=== PATIENT | male | born 1985 | race Two or more races ===

== ENCOUNTER 2016-06-28 20:35 | Emergency (ER) | payer OTHER ==
[~2016-06-28] VITALS: Ht 180.3 cm; Wt 70.5 kg
[2016-06-28 20:57] VITALS: BP 127/84; PULSE 62; RESP 16; O2SAT 99
--- NOTE | 2016-06-28 21:45 | ED.REPORT ---
HPI-Dental/Mouth Prob Date of Service June 28, 2016 ED Provider: Dr. Raymundo Tobar D.O. A healthy 30 year old male presents to the ED with a left lower molar crown fracture onset at 1900 today, while eating pasta. The patient also reports left- sided gingival pain and swelling. He denies other symptoms. The patient has had similar symptoms in the past. Nursing Notes Stated Complaint: BROKEN CROWN Chief Complaint: Dental Nursing Notes Reviewed: Yes Allergies: Coded Allergies: cortisone (Verified Adverse Reaction, Unknown, Rash, 06/28/16) General Time Seen by MD: 21:44 Chief Complaint Tooth crown fracture Hx Obtained From: Patient Arrived By: Walk-in Onset Occurred: 1 - 4 hours ago Symptom Duration: Since onset Location: : Tooth lower L molar Quality: Painful Severity: Current: Moderate Severity: Maximum: Moderate Pertinent Negative: Relieved by nothing Recent Healthcare: No recent doctor visit Similar Sx Previous: Yes Past Medical History Past Medical History None reported Past Surgical History None reported Smoking History Unknown if Ever Smoker Ambulatory Status Independent Review of Systems Review of Systems Note: + Left lower molar crown fracture, left-sided gingival pain and swelling Constitutional: Denies: Fever Respiratory: Denies: Non-productive cough, Shortness of breath GI: Denies: Diarrhea, Vomiting Complete sys rev & neg: except as marked. Physical Exam Initial Vital Signs Vital Signs (First) Date Time Temp Pulse Resp B/P Pulse Ox O2 Delivery O2 Flow Rate FiO2 06/28/16 20:57 36.8 62 16 127/84 99 Room Air Initial VS: Reviewed Head / Eyes: Atraumatic, Normocephalic Respiratory: No respiratory distress Skin: Warm, Dry, No cyanosis Neurologic: Alert, Oriented, Nonfocal Psychiatric: Mood/affect normal, Behavior normal, Normal thought content ENT: Airway patent, Mucous membranes moist, No trismus Dental / Gums: Positive: Dental caries present, Tooth fracture No Dustin's angina Left buccal cellulitis No periapical abscess Neck: Supple, Full range of motion General/Constitutional: Awake, Alert Re-Eval/Medical Decision Re-Evaluation/Progress : Time of Eval: 22:00 Patient Status: Condition improved Re-Evaluation/Progress Note: Discussed with patient physical exam findings, diagnosis, and plan for discharge. Follow-up and return to the ER instructions given. Patient agrees with plan for care and all questions were addressed. Counseled Regarding: Diagnosis, Need for follow-up, When/why to return to ED Discharge & Departure Primary Impression: Dental caries Additional Impression: Dental infection Disposition: Home Discharge Condition All VS Reviewed: Yes Condition: Improved Patient Instructions: Dental Caries (ED) Additional Instructions: Thank you for entrusting us with your care. Take Augmentin twice daily for seven days. 1-2 [place] every six hours as needed for pain. Do not drink alcohol, drive, or consume acetaminophen while taking [place]. Call your dentist for a follow-up appointment. Return to the ER with any new or worsening symptoms including increased swelling. Referrals: Pollo Lujan (PCP) Riki Attestation Portions of this note were transcribed by Maame Camp. I, Dr. Tobar, personally performed the history, physical exam, and medical decision-making; I reviewed and confirmed the accuracy of the information in the transcribed note. Signed by: Riki Vergara, 06/28/2016, 23:10 copies to: Pollo Lujan Todd P DO June 28, 2016 21:45 MAAME CAMP June 28, 2016 22:06
[2016-06-28] MEDS ORDERED: _HYDROcodone/APAP 5-325 mg Tablet PO PRN (22:05)
[2016-06-28] MEDS ORDERED: Amoxicillin-Clav 875-125 mg Tablet PO ONE (22:05)
== END 2016-06-28 23:07 | disposition home or self-care (01) ==
LOC: SED 20:35
DX: K02.9 Dental caries, unspecified (principal); K04.7 Periapical abscess without sinus; X58.XXXA Exposure to other specified factors, initial encounter; Y93.89 Activity, other specified; Y92.9 Unspecified place or not applicable; Y99.8 Other external cause status; Z88.8 Allergy status to other drugs, medicaments and biological substances